=== PATIENT | male | born 1985 | race Caucasian/White ===

== ENCOUNTER 2016-12-02 12:07 | Emergency (ER) | payer OTHER ==
--- NOTE | 2016-12-02 12:22 | EDM.PDOC ---
ED HPI GENERAL MEDICAL PROBLEM - General Chief Complaint: Lower Extremity Injury/Pain Stated Complaint: LEFT FOOT Time Seen by Provider: 12/02/16 12:15 Source of Information: Reports: Patient History Limitations: Reports: No Limitations - History of Present Illness INITIAL COMMENTS - FREE TEXT/NARRATIVE: Rolled L lateral ankle before arrival. Had a clinic appt made for 2 pm for this , but decided he couldn't wait that long. No other injuries. Onset: Today Onset Date: 12/02/16 Onset Time: 11:15 Duration: Minutes:, Constant Location: Reports: Lower Extremity, Left Quality: Reports: Ache Severity: Moderate Improves with: Reports: Rest Worsens with: Reports: Movement Context: Reports: Trauma Associated Symptoms: Reports: No Other Symptoms Treatments ALL AROUND PRESSER: Reports: Other (see below) (none) Left Ankle Pain Score (Numeric/FACES): 5 - Related Data Allergies Allergy/AdvReac Type Severity Reaction Status Date / Time No Known Allergies Allergy Verified 12/02/16 12:27 Home Meds: Home Meds Acetaminophen/HYDROcodone [Drew 325-5 MG] 1 tab PO Q4H PRN #14 tab 12/02/16 [Rx ] Past Medical History - Past Health History Medical/Surgical History: Denies Medical/Surgical History Social & Family History - Tobacco Use Smoking Status *Q: Never Smoker - Recreational Drug Use Recreational Drug Use: No Review of Systems - Review of Systems Review Of Systems: See Below Constitutional: Reports: No Symptoms Musculoskeletal: Reports: Joint Swelling (L ankle lateral) Skin: Reports: No Symptoms Neurological: Reports: No Symptoms ED EXAM, GENERAL - Physical Exam Exam: See Below Exam Limited By: No Limitations General Appearance: Alert, WD/WN, No Apparent Distress Extremities: Joint Swelling (L lateral ankle.), Limited Range of Motion, Other ( No prox fibular pain, no lateral foot or medial ankle pain. Neg anterior drawer sign.). No: Normal Range of Motion, Redness Neurological: Alert, Oriented, CN II-XII Intact, Normal Cognition Psychiatric: Normal Affect, Normal Mood Skin Exam: Warm, Dry, Intact, Normal Color, No Rash Lymphatic: No Adenopathy Course - Vital Signs Last Recorded V/S: Last Vital Signs Temp 36.4 C 12/02/16 12:29 Pulse 85 12/02/16 12:29 Resp 20 12/02/16 12:29 BP 120/74 12/02/16 12:29 Pulse Ox 100 12/02/16 12:29 - Orders/Labs/Meds Orders: Active Orders 24 hr Category Date Time Status Ankle Min 3V Lt [CR] Stat Exams 12/02/16 12:17 Ordered Meds: Medications Discontinued Medications Generic Name Dose Route Start Last Admin Trade Name Pedro PRN Reason Stop Dose Admin Ibuprofen 600 mg 12/02/16 12:32 12/02/16 12:39 Motrin PO 12/02/16 12:33 600 mg ONETIME ONE Administration Oxycodone/Acetaminophen 1 tab 12/02/16 12:32 12/02/16 12:40 Percocet 325-5 Mg PO 12/02/16 12:33 1 tab ONETIME ONE Administration - Radiology Interpretation Free Text/Narrative:: L ankle [id number] Departure - Departure Time of Disposition: 13:00 Disposition: Home, Self-Care 01 Condition: Good Clinical Impression: Left ankle sprain Qualifiers: Encounter type: initial encounter Involved ligament of ankle: calcaneofibular ligament Qualified Code(s): S93.412A - Sprain of calcaneofibular ligament of left ankle, initial encounter - Discharge Information Referrals: James Amos MD [Primary Care Provider] - Forms: ED Department Discharge - My Orders Last 24 Hours: My Active Orders 12/02/16 12:17 Ankle Min 3V Lt [CR] Stat - Assessment/Plan Last 24 Hours: My Active Orders 12/02/16 12:17 Ankle Min 3V Lt [CR] Stat
[2016-12-02 12:30] VITALS: BP 120/74
[2016-12-02] MEDS ORDERED: Acetaminophen/oxyCODONE 325-5 MG Tab PO ONE (12:32)
[2016-12-02] MEDS ORDERED: Ibuprofen 600 MG Tab PO ONE (12:32)
--- NOTE | 2016-12-02 14:36 | CR ---
INDICATION: Injury with lateral pain, stepped off a trailer and rolled ankle. LEFT ANKLE: Three views of the left ankle revealed soft tissue swelling overlying the lateral malleolus. However, the ankle mortise appeared to be intact without evidence of a fracture , dislocation, or other significant bone or joint abnormality. JIMD
== END 2016-12-02 13:00 | disposition home or self-care (01) ==
LOC: FB.ED 12:07
DX: S93.412A Sprain of calcaneofibular ligament of left ankle, initial encounter (principal); X50.1XXA Overexertion from prolonged static or awkward postures, initial encounter; Y93.39 Activity, other involving climbing, rappelling and jumping off
CPT/HCPCS: 73610; 99284; A9270